=== PATIENT | female | born 1975 | race Caucasian/White ===

== ENCOUNTER → 2016-07-08 | Outpatient (CLI) | payer BC ==
--- NOTE | 2016-07-08 14:50 | MM ---
Reason for exam: screening (asymptomatic). Baseline mammogram. History: Took hormonal contraceptives for 2 years beginning at age 25. Physical Findings: Nurse did not find any significant physical abnormalities on exam. MG Screening Mammo w CAD Bilateral CC and MLO view(s) were taken. The breast tissue is heterogeneously dense. This may lower the sensitivity of mammography. Benign calcifications. Nodular density upper outer right breast. These results were verbally communicated with the patient and result sheet given to the patient on 07/08/16. ASSESSMENT: Incomplete: Need prior studies RECOMMENDATION: Special view mammogram of the right breast. If lesion persists on supplemental views, image directed ultrasound is recommended. [facility] will attempt to contact patient to return for supplemental views and ultrasound if indicated.
--- NOTE | 2016-07-08 14:51 | MM ---
Reason for exam: additional evaluation requested from abnormal screening. History: Took hormonal contraceptives for 2 years beginning at age 25. MG Work Up Mamm w CAD RT ML, XCCL, and spot compression MLO view(s) were taken of the right breast. Nodular density persists upper outer quadrant in the right breast 5.3 cm from nipple. These results were verbally communicated with the patient and result sheet given to the patient on 07/08/16. ASSESSMENT: Incomplete: need additional imaging evaluation, BI-RAD 0 RECOMMENDATION: Ultrasound of the right breast.
--- NOTE | 2016-07-08 14:52 | USB ---
Reason for exam: additional evaluation requested from abnormal screening. History: Took hormonal contraceptives for 2 years beginning at age 25. US Breast Workup Limited RT Right breast ultrasound demonstrates a 5 x 3 x 4mm oval, cystic lesion at 10 o'clock, a 6 x 3 x 5mm oval, cystic lesion at 10 o'clock, a 10 x 5 x 11mm oval cystic lesion at 11 o'clock, a 6 x 6 x 8mm lobular, cystic cluster at 12 o'clock, and a 5mm oval lymph node in the axilla tail. These results were verbally communicated with the patient and result sheet given to the patient on 07/08/16. ASSESSMENT: Benign, BI-RAD 2 RECOMMENDATION: Routine screening mammogram of both breasts in 1 year.
== END | disposition home or self-care (01) ==
LOC: RADMAMWWP 12:45
PROVIDERS: ATTEND Family Medicine
DX: Z12.31 Encounter for screening mammogram for malignant neoplasm of breast (principal); R92.2 Inconclusive mammogram
CPT/HCPCS: 76642; G0202; G0206

== ENCOUNTER → 2016-09-17 | Outpatient (CLI) | payer BC ==
--- NOTE | 2016-09-17 16:23 | CT ---
EXAMINATION TYPE: CT soft tissue neck w con DATE OF EXAM: 09/17/2016 COMPARISON: NONE HISTORY: Patient complains of cough, sore throat, and anterior midline neck swelling (marked by BB) t hat is tender to the touch. CT DLP: 227.5 mGycm CONTRAST: CT scan of the neck is performed with IV Contrast, patient injected with 100 mL of Omnipaque 300. Contrast enhanced CT of the neck was performed from the skull base through the lung apices. At the site of clinical concern there is a midline cystic mass at the level of the hyoid which measur es 3.5 cm in length by 2.3 cm AP dimension and 2.7 cm in transverse dimension. This likely reflects a thyroglossal duct cyst slight rim capsular enhancement is noted. No additional masses are identified at this time. AIRWAY: The supraglottic, glottic, and subglottic portions of the airway appear patent and free of mass. SALIVARY GLANDS: The submandibular and parotid glands are free of mass or inflammatory process. THYROID GLAND: No nodules or masses seen. LYMPH NODES: No adenopathy seen greater than 1cm. LUNG APICES: No nodule or mass is seen. OTHER: Vascular structures are patent. No significant degenerative change of the cervical spine. N o abscess seen. Mild mucosal thickening left maxillary sinus. IMPRESSION: Findings felt to reflect a midline thyroglossal duct cyst with minimal wall enhancement.
== END | disposition home or self-care (01) ==
LOC: RADCTMAIN 15:12
PROVIDERS: ATTEND Family Medicine
DX: R22.1 Localized swelling, mass and lump, neck (principal)
CPT/HCPCS: 70491; Q9967

== ENCOUNTER → 2017-10-22 | Outpatient (CLI) | payer BC ==
--- NOTE | 2017-10-23 14:47 | MM ---
Reason for exam: screening (asymptomatic). Last mammogram was performed 1 year and 3 months ago. History: Took hormonal contraceptives for 2 years beginning at age 25. Physical Findings: A clinical breast exam by your physician is recommended on an annual basis and results should be correlated with mammographic findings. MG Screening Mammo w CAD Bilateral CC and MLO view(s) were taken. Prior study comparison: July 08, 2016, right breast MG work up mamm w CAD RT. July 08, 2016, bilateral MG screening mammo w CAD. The breast tissue is heterogeneously dense. This may lower the sensitivity of mammography. No significant changes when compared with prior studies. ASSESSMENT: Benign, BI-RAD 2 RECOMMENDATION: Routine screening mammogram of both breasts in 1 year.
== END | disposition home or self-care (01) ==
LOC: RADMAMWWP 16:54
PROVIDERS: ATTEND Family Medicine
DX: Z12.31 Encounter for screening mammogram for malignant neoplasm of breast (principal)
CPT/HCPCS: 77067

== ENCOUNTER → 2018-11-24 | Outpatient (CLI) | payer BC ==
--- NOTE | 2018-11-24 13:39 | MM ---
Reason for exam: screening (asymptomatic). Last mammogram was performed 1 year and 1 month ago. History: Took hormonal contraceptives for 2 years beginning at age 25. Physical Findings: A clinical breast exam by your physician is recommended on an annual basis and results should be correlated with mammographic findings. MG Screening Mammo w CAD Bilateral CC and MLO view(s) were taken. Prior study comparison: October 22, 2017, bilateral MG screening mammo w CAD. July 08, 2016, right breast MG work up mamm w CAD RT. The breast tissue is extremely dense which could obscure a lesion on mammography. No significant changes when compared with prior studies. ASSESSMENT: Negative, BI-RAD 1 RECOMMENDATION: Routine screening mammogram of both breasts in 1 year. Patient should continue monthly self breast exams. A negative report should not preclude additional follow up of suspicious palpable abnormalities.
== END | disposition home or self-care (01) ==
LOC: RADMAMWWP 07:08
PROVIDERS: ATTEND Family Medicine
DX: Z12.31 Encounter for screening mammogram for malignant neoplasm of breast (principal)
CPT/HCPCS: 77067

== ENCOUNTER → 2019-12-10 | Outpatient (CLI) | payer BC | END | disposition home or self-care (01) | LOC: LABWHC1 15:46 | PROVIDERS: ATTEND Nurse Practitioner Family | DX: Z20.828 Contact with and (suspected) exposure to other viral communicable diseases (principal) ==

== ENCOUNTER 2023-05-14 10:43 | Day surgery (SDC) | payer BC ==
[~2023-05-14 10:43] MED LIST: HYDROmorphone 0.5 MG/0.5 ML SYRINGE IVP PRN; LIDOCAINE 1% (10MG/ML) FOR IV START INTRADERMA PRN; droPERidol 5 MG/2 ML VIAL IVP ONE
[2023-05-14] MEDS: LACTATED RINGERS 1,000 ML IV SCH (11:17)
[2023-05-14] MEDS: DEXAMETHASONE SOD PHOSPHATE 4 MG/ML 1 ML VIAL IV ONE (11:19)
[2023-05-14] MEDS: FAMOTIDINE 20 MG/2 ML VIAL IV PRN (11:19)
[2023-05-14] MEDS: ONDANSETRON 4 MG/2 ML VIAL IVP ONE (11:19)
[2023-05-14] MEDS: SCOPOLAMINE 1 MG/72 HR PATCH TRANSDERM ONE (11:19)
[2023-05-14] MEDS: MIDAZOLAM 2 MG/2 ML VIAL IVP ONE (11:31)
[2023-05-14] MEDS: LIDOCAINE 1%-EPI 1:100,000 20 ML VIAL SQ ONE ×3 (12:44→13:13)
[2023-05-14] MEDS ORDERED: LIDOCAINE 1% INJ 10MG/ML (20 ML MDV) ONE (12:52)
[2023-05-14] MEDS ORDERED: NEOSTIGMINE 1 MG/ML 10 ML VIAL ONE (12:52)
[2023-05-14] MEDS ORDERED: PHENYLEPHRINE 10 MG/ML VIAL ONE (12:52)
[2023-05-14] MEDS ORDERED: SUCCINYLCHOLINE CHLORIDE 200 MG/10 ML VIAL IV ONE (12:52)
[2023-05-14] MEDS ORDERED: PROPOFOL 10 MG/ML 20 ML VIAL IV ONE (12:52)
[2023-05-14] MEDS ORDERED: ROCURONIUM 10 MG/ML (5 ML VIAL) IV ONE (12:52)
[2023-05-14] MEDS ORDERED: KETOROLAC 15 MG/ML 1 ML VIAL ONE (12:52)
[2023-05-14] MEDS ORDERED: fentaNYL (PF) 50 MCG/ML 2 ML AMP ONE (12:52)
[2023-05-14] MEDS ORDERED: GLYCOPYRROLATE 0.2 MG/ML 2 ML VIAL ONE (12:52)
[2023-05-14] MEDS: BACITRACIN ZINC 500 UNIT/GM OINT 28.4 GM TUBE TOPICAL ONE (14:13)
--- NOTE | 2023-05-14 14:37 | P.OP ---
Date of Procedure: 05/14/23 Preoperative Diagnosis: Thyroglossal duct cyst Postoperative Diagnosis: Same Procedure(s) Performed: Excision thyroglossal duct cyst including Sj procedure Anesthesia: CRICKETA Surgeon: Huy Quesada Estimated Blood Loss (ml): 5 Pathology: other (Midline neck mass) Condition: stable Disposition: PACU Indications for Procedure: The 47-year-old white female whose has had a midline neck mass since her early 20s. This fluctuates in size. In [address] of the neck which was consistent with a thyroglossal duct cyst. She has decided to pursue excision at this point as it is currently symptomatic with globus sensation when it enlarges. Operative Findings: Cystic lesion overlying the midline anterior neck between the strap muscles and extending down to the hyoid bone and into the hyoid bone but then ended deep to the hyoid bone. This was consistent with a thyroglossal duct cyst this is excised grossly entirely Description of Procedure: Patient brought in the operative suite and placed in a supine position. Patient underwent induction of general anesthesia with oral endotracheal intubation without difficulty. The patient was prepped and draped in usual aseptic fashion after being positioned with a head donut and shoulder roll. 1% lidocaine with [id number] epinephrine was infused subcutaneously and field block fashion. A transverse midline incision was made overlying the lesion and carried sharply through skin and subcutaneous tissue and platysma layers. The cyst was encountered between the strap muscles were split in the midline raphae . The cyst was excised from the surrounding tissue down onto the anterior tracheal wall and dissected from inferior to superior up to the hyoid bone. This was attached to the midline hyoid bone and therefore the mid hyoid bone was exposed then developed and then a portion of the midline hyoid bone was cut with bone biters to be included with the dissection. Proceeding superiorly there was no further abnormal structure noted as this appeared to end in a blind palpated within the hyoid bone. Excellent hemostasis was noted at this point but a small pledget of Surgicel was placed in a superior aspect wound. The normal saline prior to this. The strap muscles were reapproximated with 3-0 Vicryl suture platysma and subcutaneous layers were closed with inverted interrupted 4-0 Vicryl suture and skin closed with running locking 5-0 Prolene suture. Miladys itracin ointment and sterile dressings were placed. The patient was then allowed to emerge from general anesthesia having tolerated procedure well was extubated in the operative suite and transferred to postop recovery area in satisfactory condition.
[2023-05-14 14:38] VITALS: TEMP 97.7
[2023-05-14] MEDS: LACTATED RINGERS 300 ML IV ONE (15:34)
[2023-05-14 15:50] VITALS: BP 114/70; PULSE 72; RESP 16
== END 2023-05-14 15:52 | disposition home or self-care (01) ==
LOC: OR 10:43
PROVIDERS: ATTEND Otolaryngology
DX: Q89.2 Congenital malformations of other endocrine glands (principal); Z90.89 Acquired absence of other organs
CPT/HCPCS: 60280; 81025; 88305; J2250; J0330; J1100; J2710; J0690; J2405; J2001; J3010; J3490; J1885; J2704; J2371

== ENCOUNTER → 2024-04-27 | Outpatient (CLI) | payer BC ==
--- NOTE | 2024-04-27 11:16 | MM ---
Reason for Exam: Screening (asymptomatic). Last mammogram was performed 5 year(s) and 5 month(s) ago. Patient History: Menarche at age 14. First Full-Term at age 27. Perimenopausal. Hormonal Contraceptives for 2 years from age 25 until age 27. Risk Values: Aline 5 year model risk: 1.0%. NCI Lifetime model risk: 10.3%. Prior Study Comparison: 07/08/2016 Right Diagnostic Mammogram, [facility]. 10/22/2017 Bilateral Screening Mammogram, [facility] 11/24/2018 Bilateral Screening Mammogram, [facility]. Tissue Density: The breasts are heterogeneously dense, which may obscure small masses. Findings: Analyzed By CAD. Right breast: There is no suspicious group of microcalcifications or new suspicious mass. Left breast: There is no suspicious group of microcalcifications or new suspicious mass. Overall Assessment: Negative, BI-RAD 1 Management: Screening Mammogram of both breasts in [address] [facility] will attempt to contact patient to return for supplemental views and ultrasound if indicated. Patient should continue monthly self-breast exams. A clinical breast exam by your physician is recommended on an annual basis. This exam should not preclude additional follow-up of suspicious palpable abnormalities. Note on Aline scores and lifetime risk: 1. A Aline score greater than 3% is considered moderate risk. If this is the case, consider specialist referral to assess eligibility for a risk reducing agent. 2. If overall lifetime risk for the development of breast cancer is 20% or higher, the patient may qualify for future screening with alternating mammogram and breast MRI. [facility], , 04/27/2024 11:13 AM. Electronically signed and approved by: Judd Caldera DO
== END | disposition home or self-care (01) ==
LOC: RADMAMWWP 10:05
PROVIDERS: ATTEND Family Medicine
DX: Z12.31 Encounter for screening mammogram for malignant neoplasm of breast (principal); R92.333 Mammographic heterogeneous density, bilateral breasts; Z92.0 Personal history of contraception
CPT/HCPCS: 77063; 77067